=== PATIENT | female | born 1930 | race Caucasian/White ===

== ENCOUNTER 2017-10-13 07:08 | Outpatient (CLI) | payer OTHER ==
[~2017-10-13 07:08] MED LIST: PLAVIX75 MG; SIMVASTATIN5 MG
== END 2017-10-13 07:17 | disposition home or self-care (01) ==
LOC: SONOGRAMA 07:08 → MAMO-SONO 07:45
DX: R10.84 Generalized abdominal pain (principal)

== ENCOUNTER 2018-02-09 10:42 | Outpatient (CLI) | payer OTHER | END 2018-02-09 10:46 | disposition home or self-care (01) | LOC: RAD 10:42 | DX: N20.0 Calculus of kidney (principal) ==

== ENCOUNTER 2018-03-05 15:17 | Outpatient (CLI) | payer OTHER | END 2018-03-05 15:24 | disposition home or self-care (01) | LOC: TOM 15:17 | DX: N20.0 Calculus of kidney (principal) ==

== ENCOUNTER → 2019-09-27 | Emergency (ER) | payer OTHER ==
[~2019-09-27] VITALS: Ht 152.4 cm; Wt 44.5 kg
[~2019-09-27] MED LIST changes: +DUI500 PO
== END | disposition home or self-care (01) ==
LOC: ER 11:03
DX: S41.122A Laceration with foreign body of left upper arm, initial encounter (principal); W45.8XXA Other foreign body or object entering through skin, initial encounter; Y93.89 Activity, other specified; Y92.098 Other place in other non-institutional residence as the place of occurrence of the external cause; Y99.8 Other external cause status

== ENCOUNTER → 2021-12-17 | Outpatient (CLI) | payer OTHER | END | disposition home or self-care (01) | LOC: NUCLEAR 08:00 | PROVIDERS: ATTEND Internal Medicine Cardiovascular Disease | DX: I82.403 Acute embolism and thrombosis of unspecified deep veins of lower extremity, bilateral (principal); Z88.6 Allergy status to analgesic agent ==